=== PATIENT | female | born 1980 | race Caucasian/White ===

== ENCOUNTER 2016-12-13 09:53 | Day surgery (SDC) | payer MEDICAID ==
[2016-12-13] MEDS ORDERED: SYNTHROID50 MC1 PO (10:08)
[2016-12-13] MEDS ORDERED: PRINIVIL10 M1 PO (10:09)
[2016-12-13] MEDS ORDERED: ZOCOR20 M1 PO (10:10)
[2016-12-13] MEDS ORDERED: GLUCOPHAGE500 M3 PO (10:10)
[2016-12-13 11:07] LABS: BASO % 0.3 % (0-2); EOS % 1.1 % (0-7); EOSINOPHIL ABSOLUTE COUNT 0.1 tho/cmm (0.0-0.7); HCT-HEMATOCRIT 38.3 % (34.0-49.0); HGB-HEMOGLOBIN 12.6 gm/dl (12.0-15.5); IMMATURE GRANULOCYTES ABSOLUTE 0.01 tho/cmm (0-0.03); IMMATURE GRANULOCYTES PERCENT 0.1 % (0-0.3); LYMPH % 41.9 % (20-45); MCH (MEAN CORPUSCULAR HGB) 26.5 pg (28.0-32.0); MCHC MEAN CORPUSCULAR HGB CONC 32.9 % (32.0-36.0); MCV (MEAN CELL VOLUME) 80.6 fl (82.0-96.0); MONOCYTE ABSOLUTE COUNT 0.3 tho/cmm (0.0-1.2); NEUTROPHIL ABSOLUTE COUNT 3.8 tho/cmm (1.6-8.0); NEUTROPHIL-AUTOMATED 3.8 tho/cmm (1.6-8.0); NEUTROPHILS % 52.6 % (40-80); PLATELET COUNT 319 tho/cmm (150-450); RED BLOOD COUNT 4.75 mil/cmm (4.00-5.20); RED CELL DISTRIBUTION WIDTH 13.5 % (12.4-16.4); WHITE BLOOD COUNT 7.3 tho/cmm (4.0-10.0)
[2016-12-13 11:15] LABS: INR 0.9 INR (0.9-1.1); PROTHROMBIN TIME 10.5 SECONDS (9.0-13.6)
[2016-12-13 11:20] LABS: URINE BILIRUBIN NEGATIVE (NEG); URINE BLOOD NEGATIVE (NEG); URINE GLUCOSE (UA) NEGATIVE (NEG); URINE KETONE NEGATIVE (NEG); URINE LEUKOCYTE ESTERASE NEGATIVE (NEG); URINE NITRITE NEGATIVE (NEG); URINE PROTEIN NEGATIVE (NEG); URINE SPECIFIC GRAVITY 1.005 (1.003-1.030)
[2016-12-13 11:23] LABS: URINE APPEARANCE CLEAR; URINE COLOR YELLOW
[2016-12-13 11:23] LABS: ANION GAP 15 mmol/L (0-20); BLOOD UREA NITROGEN 7 mg/dl (6-24); CARBON DIOXIDE-VENOUS 27 mmol/L (22-32); CHLORIDE 103 mmol/l (96-110); CREATININE 0.54 mg/dl (0.50-1.10); GLUCOSE 137 mg/dL (70-110); POTASSIUM 3.8 mmol/L (3.7-5.1); SODIUM 141 mmol/L (135-145); eGFR VALUE FOR BLACK >90 mL/Min
[2016-12-13 11:33] LABS: PREGNANCY-SERUM NEGATIVE (NEGATIVE)
== END 2016-12-13 15:40 ==
LOC: SHSB 09:53 → ORW 12:04 → SHSB 14:10
PROVIDERS: Obstetrics & Gynecology
PROC: 0U594ZZ Destruction of Uterus, Percutaneous Endoscopic Approach (ICD-10-PCS; principal; 2016-12-13)
DX: N81.4 Uterovaginal prolapse, unspecified (principal); N80.0 Endometriosis of uterus; N73.6 Female pelvic peritoneal adhesions (postinfective); G89.29 Other chronic pain; I10 Essential (primary) hypertension; E11.9 Type 2 diabetes mellitus without complications; E03.9 Hypothyroidism, unspecified; E78.5 Hyperlipidemia, unspecified; Z79.84 Long term (current) use of oral hypoglycemic drugs; Z79.899 Other long term (current) drug therapy; Z98.51 Tubal ligation status; Z98.890 Other specified postprocedural states
CPT/HCPCS: J0690; J7050